=== PATIENT | female | born 1950 | race Hispanic/Latino ===

== ENCOUNTER 2020-10-31 11:57 | Emergency (ER) | payer MEDICARE ==
[~2020-10-31] VITALS: Ht 154.9 cm; Wt 63.2 kg
[2020-10-31] MEDS ORDERED: ONDANSETRON HCL INJ 2MG/ML 2ML 2 MG/ML VIAL IV STA (12:41)
[2020-10-31] MEDS ORDERED: ONDANSETRON HCL INJ 2MG/ML 2ML 2 MG/ML VIAL ONE (13:06)
[2020-10-31] MEDS ORDERED: OMEPRAZOLE40 MG PO (13:37)
[2020-10-31] MEDS ORDERED: LOSARTAN POTAS100 MG PO (13:37)
[2020-10-31] MEDS ORDERED: TRICOR145 MG PO (13:37)
[2020-10-31] MEDS ORDERED: METOPROLOL TART50 MG PO (13:37)
[2020-10-31] MEDS ORDERED: LEVOTHYROXINE75 MCG PO (13:37)
[2020-10-31] MEDS ORDERED: FAMOTIDINE20 MG PO (13:37)
[2020-10-31] MEDS ORDERED: GLIPIZIDE-METF1 EAC2 PO (13:37)
[2020-10-31] MEDS ORDERED: ATORVASTATIN CA20 MG PO (13:37)
[2020-10-31] MEDS ORDERED: ACTOS15 MG PO (13:37)
[2020-10-31] MEDS ORDERED: LEXAPRO20 MG PO (13:38)
[2020-10-31] MEDS ORDERED: ONDANSETRON ODT4 MG PO (14:03)
[2020-10-31] MEDS ORDERED: PROTONIX20 MG PO (14:03)
== END 2020-10-31 15:10 | disposition home or self-care (01) ==
LOC: FSED 12:34
DX: R10.13 Epigastric pain (principal); R11.2 Nausea with vomiting, unspecified; E11.65 Type 2 diabetes mellitus with hyperglycemia; I10 Essential (primary) hypertension; E78.5 Hyperlipidemia, unspecified; K21.9 Gastro-esophageal reflux disease without esophagitis; F32.9 Major depressive disorder, single episode, unspecified
CPT/HCPCS: 74176; 80048; 80076; 81003; 85025; 96374; 99284; J2405